=== PATIENT | male | born 1995 | race African-American/Black ===

== ENCOUNTER 2021-03-07 08:36 | Emergency (ER) | payer OTHER, MEDICAID, SELFPAY ==
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
[2021-03-07 09:12] VITALS: BP 118/82; PULSE 80; RESP 16; TEMP 36.6; O2SAT 97; BMI 24.4
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
[2021-03-07 10:58] VITALS: BP 155/80; PULSE 75; RESP 18; O2SAT 95
== END 2021-03-07 11:02 | disposition home or self-care (01) ==
PROVIDERS: Emergency Provider Emergency Medicine
DX: S09.90XA Unspecified injury of head, initial encounter (principal); S16.1XXA Strain of muscle, fascia and tendon at neck level, initial encounter; S63.502A Unspecified sprain of left wrist, initial encounter; S93.401A Sprain of unspecified ligament of right ankle, initial encounter; V43.62XA Car passenger injured in collision with other type car in traffic accident, initial encounter; Y93.89 Activity, other specified; Y92.414 Local residential or business street as the place of occurrence of the external cause; Y99.9 Unspecified external cause status
CPT/HCPCS: 70450; 72125; 73090; 73110; 73130; 73610; 99284; 99285

== ENCOUNTER 2021-08-07 10:45 | Outpatient (REF) | payer MEDICAID, SELFPAY ==
[2021-08-07 11:56] LABS: COVID-19 Test Positive (Negative)
== END 2021-08-07 10:46 | disposition home or self-care (01) ==
LOC: HO.LAB 10:45
PROVIDERS: Visit Provider Internal Medicine
DX: Z20.822 Contact with and (suspected) exposure to COVID-19 (principal)
CPT/HCPCS: 36415; 87635; C9803

== ENCOUNTER 2021-09-06 18:03 | Emergency (ER) | payer OTHER, SELFPAY ==
[2021-09-06 20:17] VITALS: BP 115/73; PULSE 86; RESP 18; TEMP 36.8; O2SAT 96; BMI 25.0
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
== END 2021-09-06 21:34 | disposition home or self-care (01) ==
LOC: HO.ED 21:09
PROVIDERS: Emergency Provider Emergency Medicine Emergency Medical Services
DX: S29.012A Strain of muscle and tendon of back wall of thorax, initial encounter (principal); V49.50XA Passenger injured in collision with unspecified motor vehicles in traffic accident, initial encounter; Y93.9 Activity, unspecified; Y92.410 Unspecified street and highway as the place of occurrence of the external cause; Y99.9 Unspecified external cause status
CPT/HCPCS: 99283

== ENCOUNTER 2022-04-13 11:55 | Outpatient (REF) | payer MEDICAID, SELFPAY ==
--- NOTE | ~2022-04-13 | XR_ITS ---
EXAMINATION: XR RIGHT KNEE XR RIGHT ANKLE XR LUMBAR SPINE CLINICAL INFORMATION: Low back pain, right ankle and right knee. COMPARISON: None TECHNIQUE: Lumbar spine 5 views. Right ankle 3 views. Right knee 3 views. FINDINGS: LUMBAR SPINE: There is normal lumbar lordosis. The vertebral heights, alignment and disc heights are normal. On oblique view there is no pars defect or listhesis. No visible acute fracture, dislocation or lytic process seen. SI joints are symmetrical. RIGHT ANKLE: There are surgical niki along the distal medial lower leg from likely vascular surgery. The ankle mortise and subtalar joints are normal. No visible acute fracture or dislocation seen. RIGHT ANKLE: The tricompartment joint space is maintained normal. No visible acute fracture, dislocation or subluxation seen. No bony erosive changes. The soft tissues are normal. XR/XR ankle RT min 3V IMPRESSION: Unremarkable right ankle exam. There are multiple surgical niki along the medial distal lower leg likely from vascular intervention. Unremarkable right knee exam. Unremarkable lumbar spine exam.
--- NOTE | ~2022-04-13 | XR_ITS ---
EXAMINATION: XR RIGHT KNEE XR RIGHT ANKLE XR LUMBAR SPINE CLINICAL INFORMATION: Low back pain, right ankle and right knee. COMPARISON: None TECHNIQUE: Lumbar spine 5 views. Right ankle 3 views. Right knee 3 views. FINDINGS: LUMBAR SPINE: There is normal lumbar lordosis. The vertebral heights, alignment and disc heights are normal. On oblique view there is no pars defect or listhesis. No visible acute fracture, dislocation or lytic process seen. SI joints are symmetrical. RIGHT ANKLE: There are surgical niki along the distal medial lower leg from likely vascular surgery. The ankle mortise and subtalar joints are normal. No visible acute fracture or dislocation seen. RIGHT ANKLE: The tricompartment joint space is maintained normal. No visible acute fracture, dislocation or subluxation seen. No bony erosive changes. The soft tissues are normal. XR/XR knee RT 2V IMPRESSION: Unremarkable right ankle exam. There are multiple surgical niki along the medial distal lower leg likely from vascular intervention. Unremarkable right knee exam. Unremarkable lumbar spine exam.
--- NOTE | ~2022-04-13 | XR_ITS ---
EXAMINATION: XR RIGHT KNEE XR RIGHT ANKLE XR LUMBAR SPINE CLINICAL INFORMATION: Low back pain, right ankle and right knee. COMPARISON: None TECHNIQUE: Lumbar spine 5 views. Right ankle 3 views. Right knee 3 views. FINDINGS: LUMBAR SPINE: There is normal lumbar lordosis. The vertebral heights, alignment and disc heights are normal. On oblique view there is no pars defect or listhesis. No visible acute fracture, dislocation or lytic process seen. SI joints are symmetrical. RIGHT ANKLE: There are surgical niki along the distal medial lower leg from likely vascular surgery. The ankle mortise and subtalar joints are normal. No visible acute fracture or dislocation seen. RIGHT ANKLE: The tricompartment joint space is maintained normal. No visible acute fracture, dislocation or subluxation seen. No bony erosive changes. The soft tissues are normal. XR/XR lumbar spine 4V min IMPRESSION: Unremarkable right ankle exam. There are multiple surgical niki along the medial distal lower leg likely from vascular intervention. Unremarkable right knee exam. Unremarkable lumbar spine exam.
== END 2022-04-13 11:56 | disposition home or self-care (01) ==
LOC: HO.XRAY 11:55
PROVIDERS: PCP Registered Nurse; Visit Provider Registered Nurse
DX: M25.561 Pain in right knee (principal); M25.571 Pain in right ankle and joints of right foot; M54.50 Low back pain, unspecified
CPT/HCPCS: 72110; 73560; 73610

== ENCOUNTER 2022-07-07 04:57 | Emergency (ER) | payer MEDICAID, SELFPAY ==
[2022-07-07 05:13] VITALS: BP 118/56; PULSE 119; RESP 18; TEMP 37.7; O2SAT 97; BMI 23.6
[2022-07-07 05:44] LABS: Strep A Nucleic Acid Positive (Negative)
[2022-07-07 06:02] LABS: Influenza A PCR NEGATIVE (Negative); Influenza B PCR NEGATIVE (Negative); Resp Syncy Virus RNA Qual PCR NEGATIVE (Negative); SARS COV2 PCR INHOUSE POSITIVE (Negative)
[2022-07-07 06:13] VITALS: BP 111/57; PULSE 98; RESP 16; TEMP 37.1; O2SAT 96
--- NOTE | 2022-07-07 06:27 | ED_ITS ---
HPI - General Adult General Chief complaint: General Medical Stated complaint: flu like symptoms Time Seen by Provider: 07/07/22 06:20 Source: patient Mode of arrival: ambulatory Limitations: no limitations History of Present Illness HPI narrative: Patient comes to the emergency room complaining of sore throat, chills, body aches and subjective fever for the last 24 hours. Patient denies chest pain or shortness of breath, no UTI symptoms Related Data Previous Rx's Medication Instructions Recorded acetaminophen 500 mg tablet 1,000 mg PO QID PRN fever or pain 03/07/21 (Tylenol Extra Strength) #14 tabs cyclobenzaprine 10 mg tablet 10 mg PO Q8H Muscle spasm #10 tabs 03/07/21 ibuprofen 800 mg tablet 800 mg PO Q8H PRN pain #14 tabs 03/07/21 cyclobenzaprine 10 mg tablet 10 mg PO TID PRN muscle spasm #10 09/06/21 tabs ibuprofen 600 mg tablet 600 mg PO Q8H PRN pain #10 tabs 09/06/21 lidocaine 5 % topical patch 1 patch topical DAILY #15 ea 09/06/21 amoxicillin 500 mg-potassium 1 tab PO BID 10 days #20 tabs 07/07/22 clavulanate 125 mg tablet (Augmentin) nirmatrelvir 300 mg (150 mg See Rx Instructions PO .COMPLEX 07/07/22 x2)-ritonavir 100 mg tablet,dose #30 ea pack(EUA) (Paxlovid) Allergies Allergy/AdvReac Type Severity Reaction Status Date / Time No Known Allergies Allergy Verified 09/06/21 20:17 [No Known Allergies*] Review of Systems Review of Systems: Constitutional : No Weight loss, complaining of subjective fever, chills, fatigue and generalized malaise, and body aches ENT/Mouth : No Hearing loss, No Ear Pain, No Nasal Congestion, No Sinus Pain, No Hoarseness, complaining of sore throat, no difficulty swallowing Eyes: No Eye Pain, No Swelling, No Redness, No Foreign Body, No Discharge, No Vision Changes Cardiovascular : No Chest Pain, No SOB, No Dyspnea on Exertion, No Orthopnea, No Edema, No Palpitations Respiratory : No Cough, No Sputum, No Wheezing, No Smoke Exposure, No Dyspnea Gastrointestinal : No Nausea, No Vomiting, No Diarrhea, No Constipation, No abd ominal Pain, No Hematochezia, No Melena Genitourinary : no irregular bleeding, No Dysuria, No Urinary Frequency, No Hematuria, No Urinary Incontinence, No Urgency, No Flank Pain, No Urinary Flow Changes, No Hesitancy Musculoskeletal : No joint pain, No Myalgias, No Joint Swelling Skin : No Skin Lesions, No rash Neuro : No Weakness, No Numbness, No Paresthesias, No Loss of Consciousness, No Dizziness, No Headache Psych : No Anxiety/Panic, No Depression, No SI/HI/AH/VH, No Social Issues, Heme/Lymph: No Bruising, No Bleeding,No Lymphadenopathy Endocrine : No Polyuria, No Polydipsia, No Temperature Intolerance [facility] Social History Social History Patient Tobacco Use Status: Former Tobacco user Advance Directives: No Advance Directives Information Provided: No Physical Exam ED Vital Signs: Vital Signs - 24 hr 07/07/22 05:13 07/07/22 06:13 Temperature 99.9 F 98.7 F Pulse Rate 119 H 98 Respiratory Rate 18 16 Blood Pressure 118/56 L 111/57 L Pulse Oximetry 97 96 Oxygen Delivery Method Room Air Room Air BMI result Body Mass Index 23.6 Const Other: Appearance: Alert. Oriented X3. No acute distress. Eyes: Pupils equal, round and reactive to light. ENT: Pharynx normal. No exudates, no abscess is visualized Neck: Normal inspection. Neck supple. No lymph nodes noted. No crepitus CVS: Normal heart rate and rhythm. Pulses normal. Normal S1 and S2 Respiratory: No respiratory distress. Breath sounds normal. No Wheezing. No rales Abdomen: Soft and nontender. No rigidity. No distention. Skin: Skin warm and dry. Normal skin color. Normal skin turgor. Extremities: No lower extremity edema. No Lacerations. No Rash Neuro: Oriented X 3. No motor deficit. No sensory deficit. Moving all extremities. No slurred speech. CN 2 through 12 grossly intact Psych: calm, cooperative, normal affect Course Course Course Narrative: Patient test positive for COVID-19 and for strep. Medical Decision Making Lab Data Labs: Lab Results 07/07/22 07/07/22 Range/Units 05:20 05:20 Influenza Type A (PCR) NEGATIVE (Negative) Influenza Type B (PCR) NEGATIVE (Negative) RSV RNA Qual (PCR) NEGATIVE (Negative) SARS-CoV-2 RNA (RT-PCR) POSITIVE A (Negative) S. pyogenes GrpA VIDAL Positive A (Negative) Discharge Plan Discharge Clinical Impression: Strep throat, COVID-19 Patient Disposition: Home, Self-Care Instructions: Strep Throat (ED), COVID-19 (Coronavirus Disease 2019) (ED) Additional Instructions: Please follow-up with your primary care physician tomorrow. If you have any worsening or new symptoms, please return to the emergency room or call 911 Prescriptions: New amoxicillin-pot clavulanate [Augmentin] 500-125 mg tablet 1 tab PO BID 10 Days Qty: 20 0RF Paxlovid (EUA) 300 mg (150 mg x 2)-100 mg tablets,dose pack See Rx Instructions .ROUTE .COMPLEX Qty: 30 0RF Rx Instructions: take TWO 150 mg tablets of nirmatrelvir with ONE 100 mg tablet of ritonavir twice daily for 5 days No Action cyclobenzaprine 10 mg tablet 10 mg PO Q8H Qty: 10 0RF ibuprofen 800 mg tablet 800 mg PO Q8H PRN (Reason: pain) Qty: 14 0RF acetaminophen [Tylenol Extra Strength] 500 mg tablet 1,000 mg PO QID PRN (Reason: fever or pain) Qty: 14 0RF cyclobenzaprine 10 mg tablet 10 mg PO TID PRN (Reason: muscle spasm) Qty: 10 0RF ibuprofen 600 mg tablet 600 mg PO Q8H PRN (Reason: pain) Qty: 10 0RF lidocaine 5 % adhesive patch,medicated 1 patch topical DAILY Qty: 15 0RF Rx Instructions: leave on most painful area for up to 12 hrs
== END 2022-07-07 06:44 | disposition home or self-care (01) ==
PROVIDERS: Emergency Provider Emergency Medicine
DX: U07.1 COVID-19 (principal); J02.0 Streptococcal pharyngitis
CPT/HCPCS: 0241U; 36415; 87651; 99283

== ENCOUNTER 2023-03-19 19:27 | Outpatient (REF) | payer MEDICAID, SELFPAY ==
[2023-03-19 20:53] LABS: Influenza A PCR NEGATIVE (Negative); Influenza B PCR NEGATIVE (Negative); Resp Syncy Virus RNA Qual PCR NEGATIVE (Negative); SARS COV2 PCR INHOUSE NEGATIVE (Negative)
== END 2023-03-19 19:28 | disposition home or self-care (01) ==
LOC: HO.HHCLNP 19:27
PROVIDERS: Visit Provider Registered Nurse
DX: R11.10 Vomiting, unspecified (principal); R19.7 Diarrhea, unspecified; Z20.822 Contact with and (suspected) exposure to COVID-19
CPT/HCPCS: 0241U

== ENCOUNTER 2023-07-22 11:06 | Emergency (ER) | payer MEDICAID, SELFPAY ==
--- NOTE | 2023-07-22 11:30 | ED_ITS ---
HPI - General Adult General Chief complaint: Eye Problems Stated complaint: r eye infection Time Seen by Provider: 07/22/23 11:34 Source: patient Mode of arrival: ambulatory Limitations: no limitations History of Present Illness HPI narrative: Patient is a 27 year old assigned male at with no reported medical history presenting to the emergency department today with right eye irritation. Patient states that 2 days ago, he fell asleep with his contacts in, then went to work and his right eye became much more irritated. Patient states that since it has been swollen. Patient states that he has not worn his eye contacts since. Patient denies any dizziness, lightheadedness, abdominal pain, nausea, vomiting, fever, chills, blurry vision, double vision, loss of vision, chest pain, difficulty breathing, shortness of breath, back pain, night sweats, pain with urination, increased urinary frequency, increased urinary urgency, blood in his urine or stool, syncope or a near syncopal episode, recent trauma or falls, bowel incontinence, bladder incontinence, bowel retention, bladder retention, or any other complaints at this time. Onset (ago): day(s) (2) Location: eyes and right Severity: mild Severity scale (1-10): 3 Relieving factors: none Exacerbating factors: none Associated symptoms: denies other symptoms Treatments prior to arrival: none Related Data Previous Rx's Medication Instructions Recorded acetaminophen 500 mg tablet 1,000 mg (2 x 500 mg) PO QID PRN 03/07/21 (Tylenol Extra Strength) fever or pain #14 tabs cyclobenzaprine 10 mg tablet 10 mg PO Q8H Muscle spasm #10 tabs 03/07/21 ibuprofen 800 mg tablet 800 mg PO Q8H PRN pain #14 tabs 03/07/21 cyclobenzaprine 10 mg tablet 10 mg PO TID PRN muscle spasm #10 09/06/21 tabs ibuprofen 600 mg tablet 600 mg PO Q8H PRN pain #10 tabs 09/06/21 lidocaine 5 % topical patch 1 patch topical DAILY #15 ea 09/06/21 amoxicillin 500 mg-potassium 1 tab PO BID 10 days #20 tabs 07/07/22 clavulanate 125 mg tablet (Augmentin) nirmatrelvir 300 mg (150 mg See Rx Instructions PO .COMPLEX 07/07/22 x2)-ritonavir 100 mg tablet,dose #30 ea pack (Paxlovid) doxycycline hyclate 100 mg tablet 100 mg PO BID 7 days #14 tabs 07/22/23 erythromycin 5 mg/gram (0.5 %) eye 0.5 inch ophthalmic (eye) Q4H 7 07/22/23 ointment days #3.5 grams Allergies Allergy/AdvReac Type Severity Reaction Status Date / Time No Known Allergies Allergy Verified 09/06/21 20:17 [No Known Allergies*] Review of Systems Constitutional: Constitutional: Reports no additional constitutional complaints, Denies chills, Denies fever(s) and Denies night sweats Eyes: Eyes: Reports no additional eye complaints, Denies blurry vision, Denies change in vision, Denies diplopia, Denies eye discharge, Reports irritation (right), Denies loss of vision and Reports eye pain (right) ENT: Denies dizziness Cardiovascular: Cardiovascular: Reports no additional cardiovascular complaints, Denies chest pain, Denies lightheadedness, Denies Loss of Consciousness and Denies dyspnea Respiratory: Respiratory: Reports no additional respiratory complaints and Denies dyspnea Gastrointestinal: Gastrointestinal: Reports no additional gastrointestinal complaints, Denies abdominal pain, Denies melena, Denies hematochezia, Denies change in bowel habits and Denies change in stool character Genitourinary: Genitourinary: Reports no additional male genitourinary complaints, Denies hematuria, Denies oliguria, Denies difficulty urinating, Denies dysuria, Denies urinary frequency, Denies urinary hesitancy, Denies urinary incontinence and Denies urinary urgency Musculoskeletal: Musculoskeletal: Reports no additional musculoskeletal complaints, Denies numbness and Denies tingling Neurologic: Denies dizziness, Denies loss of vision, Denies numbness and Denies tingling Psychiatric: Psychiatric: Reports no additional psychiatric complaints Endocrine: Endocrine: Reports no additional endocrine complaints Hematologic/Lymphatic: Hematologic/Lymphatic: Reports no additional hematologic/lymphatic complaints Allergic/Immunologic: Allergic/Immunologic: Reports no additional allergic/immunologic complaints PMFSH Past Medical History Attestation statement: The following information was validated with the patient. Source: old records reviewed and nursing notes reviewed Social History Social History Patient Tobacco Use Status: Former Tobacco user Advance Directives: No Advance Directives Information Provided: No Physical Exam ED Vital Signs: Vital Signs - 24 hr 07/22/23 11:32 Temperature 98.0 F Pulse Rate 76 Respiratory Rate 18 Blood Pressure 125/80 Pulse Oximetry 97 Oxygen Delivery Method Room Air BMI result Body Mass Index 23.6 Const General: cooperative, no acute distress, alert and awake Nutritional Appearance: well nourished Orientation/consciousness: patient oriented x3 Limitations: no limitations HENMT Head: Yes normal to inspection and Yes atraumatic Ears: hearing grossly normal bilaterally and external ears normal General nose exam: Normal external nose present, no nasal discharge noted and no epistaxis Face and sinus: Yes normal facial exam, No abrasion and No laceration Mouth: Normal oral and palatal mucosa present, no drooling and no muffled voice Eyes Other: irritation to the right conjunctiva with right lower lid swelling Pupils: Equal, round and reactive pupils present EOM: EOMs intact bilaterally Neck Neck: Yes normal visual inspection, Yes full ROM and Yes no lymphadenopathy Chest Chest palpation & inspection: normal inspection of the chest Resp Effort & Inspection: normal respiratory effort and able to speak in complete sentences GI Inspection: Yes normal to inspection Neuro General: patient oriented x3 and moves all extremities Cranial nerves: Yes Equal, round and reactive pupils present Cognition (Neuro): normal cognition Motor exam (neuro): 5/5 motor strength present throughout Sensory Exam: Normal double simultaneous stimulation for sensation Coordination: [id number] test normal Extrem General: Yes normal to inspection, Yes full ROM and Yes capillary refill normal Psych Appearance: grossly normal Mental Status: mental status grossly normal Affect: normal affect Attitude: cooperative Thought process: Normal thought process present Thought content: Normal thought content present Insight: Good insight present (Psych) Medical Decision Making Medical Decision Making MDM Narrative: Patient is a 27 year old assigned male at with no reported medical history of presenting to the emergency department today with right eye pain / irritat ion. Patient's physical exam was as noted in the physical exam portion of this note. I explained my physical exam findings to the patient. I answered all questions asked by the patient. I stressed the importance of the patient taking his medication as prescribed. I stressed the importance of the patient following up with his primary care provider and an eyelet row marker. I stressed the importance of the patient returning to the emergency department immediately if his symptoms were to worsen or if he were to develop any dizziness, shortness of breath, difficulty breathing, chest pain, blurry vision, loss of vision, nausea, vomiting, abdominal pain, fever, chills, back pain, or any other complaints. Patient verbalized agreement and understanding with this treatment plan and discharge. Differential Diagnosis Differential Diagnoses: The differential diagnosis associated with the presentation includes Right eye pain Right eye conjunctivitis Prescription Management I considered prescription management with: Antibiotic (patient prescribed both a topical and systemic antibiotic given his history of contact lens use) Discharge Plan Discharge Clinical Impression: Conjunctivitis Patient Disposition: Home, Self-Care Instructions: Conjunctivitis (ED) Additional Instructions: Follow up with your primary care provider. Return to the emergency department immediately if your symptoms worsen or if you develop any dizziness, shortness of breath, difficulty breathing, chest pain, blurry vision, loss of vision, nausea, vomiting, abdominal pain, fever, chills, back pain, or any other complaints. Prescriptions: New erythromycin 5 mg/gram (0.5 %) ointment 0.5 inch ophthalmic (eye) Q4H 7 Days Qty: 3.5 0RF doxycycline hyclate 100 mg tablet 100 mg PO BID 7 Days Qty: 14 0RF No Action cyclobenzaprine 10 mg tablet 10 mg PO Q8H Qty: 10 0RF ibuprofen 800 mg tablet 800 mg PO Q8H PRN (Reason: pain) Qty: 14 0RF acetaminophen [Tylenol Extra Strength] 500 mg tablet 1,000 mg PO QID PRN (Reason: fever or pain) Qty: 14 0RF cyclobenzaprine 10 mg tablet 10 mg PO TID PRN (Reason: muscle spasm) Qty: 10 0RF ibuprofen 600 mg tablet 600 mg PO Q8H PRN (Reason: pain) Qty: 10 0RF lidocaine 5 % adhesive patch,medicated 1 patch topical DAILY Qty: 15 0RF Rx Instructions: leave on most painful area for up to 12 hrs amoxicillin-pot clavulanate [Augmentin] 500-125 mg tablet 1 tab PO BID 10 Days Qty: 20 0RF Paxlovid 300 mg (150 mg x 2)-100 mg tablets,dose pack See Rx Instructions .ROUTE .COMPLEX Qty: 30 0RF Rx Instructions: take TWO 150 mg tablets of nirmatrelvir with ONE 100 mg tablet of ritonavir twice daily for 5 days Referrals: [facility] [place]] (Call to establish and follow up with a primary care provider. If you already have a primary care provider, please follow up with them.) [facility] [place] [Provider Group] (Call to establish and follow up with a primary care provider. If you already have a primary care provider, please follow up with them.) [facility] [Provider Group] (Call to establish and follow up with a primary care provider. If you already have a primary care provider, please follow up with them.) David Jimenez [Physician] - (Call to establish and follow up with an eyelet row marker.) Stand Alone Forms: Work/School Release Interventions: ED Discharge Assessment Last Done: 07/22/23 12:02 Discharge Date/Time: 07/22/23 12:03 Print Language: Greek
[2023-07-22 11:32] VITALS: BP 125/80; PULSE 76; RESP 18; TEMP 36.7; O2SAT 97; BMI 23.6
== END 2023-07-22 12:03 | disposition home or self-care (01) ==
PROVIDERS: Emergency Provider Emergency Medicine
DX: H10.9 Unspecified conjunctivitis (principal)
CPT/HCPCS: 99282; 99283

== ENCOUNTER 2023-10-01 18:51 | Emergency (ER) | payer MEDICAID, SELFPAY ==
[2023-10-01 18:56] VITALS: BP 122/76; PULSE 78; O2SAT 99
[2023-10-01 19:00] VITALS: BP 110/49; PULSE 92; RESP 20; TEMP 36.4; O2SAT 100; BMI 23.1
--- NOTE | 2023-10-01 19:00 | ECG_ITS ---
Test Reason : N/V/CP Blood Pressure : / mmHG Vent. Rate : 092 BPM Atrial Rate : 092 BPM P-R Int : 144 ms QRS Dur : 078 ms QT Int : 330 ms P-R-T Axes : 067 085 071 degrees QTc Int : 408 ms Normal sinus rhythm with sinus arrhythmia ST elevation, consider early repolarization Borderline ECG When compared with ECG of 07-FEB-2009 13:46, No significant changes seen Referred By: Jai Barbour Electronically Signed By:VINNY MANCINI MD
--- NOTE | 2023-10-01 19:01 | ED.GENADULT ---
HPI - General Adult General Chief complaint: Nausea/Vomiting/Diarrhea Stated complaint: N/V, CHEST PAIN Related Data Previous Rx's ?Medication ?Instructions ?Recorded acetaminophen 500 mg tablet 1,000 mg (2 x 500 mg) PO QID PRN 03/07/21 (Tylenol Extra Strength) fever or pain #14 tabs cyclobenzaprine 10 mg tablet 10 mg PO Q8H Muscle spasm #10 tabs 03/07/21 ibuprofen 800 mg tablet 800 mg PO Q8H PRN pain #14 tabs 03/07/21 cyclobenzaprine 10 mg tablet 10 mg PO TID PRN muscle spasm #10 09/06/21 tabs ibuprofen 600 mg tablet 600 mg PO Q8H PRN pain #10 tabs 09/06/21 lidocaine 5 % topical patch 1 patch topical DAILY #15 ea 09/06/21 amoxicillin 500 mg-potassium 1 tab PO BID 10 days #20 tabs 07/07/22 clavulanate 125 mg tablet (Augmentin) nirmatrelvir 300 mg (150 mg See Rx Instructions PO .COMPLEX 07/07/22 x2)-ritonavir 100 mg tablet,dose #30 ea pack (Paxlovid) doxycycline hyclate 100 mg tablet 100 mg PO BID 7 days #14 tabs 07/22/23 erythromycin 5 mg/gram (0.5 %) eye 0.5 inch ophthalmic (eye) Q4H 7 07/22/23 ointment days #3.5 grams ibuprofen 600 mg tablet 600 mg PO Q8H PRN pain #14 tabs 12/26/23 Allergies Allergy/AdvReac Type Severity Reaction Status Date / Time No Known Allergies Allergy Verified 12/26/23 09:38 [No Known Allergies*] [facility] Social History Social History Patient Tobacco Use Status: Former Tobacco user Advance Directives: No Do you have a plan to hurt others: No Plan Physical Exam ED Vital Signs: BMI result Body Mass Index 23.1 Course Course Course Narrative: RME- 28 year old male presents for evaluation of nausea, vomiting and chest pain. He also reports near syncope. Plan for labs, EKG, and viral swabs Medications Administered Discontinued Medications Generic Name Dose Route Start Last Admin Trade Name Freq PRN Reason Stop Dose Admin Ondansetron HCl 4 mg 10/01/23 19:02 10/01/23 19:09 Ondansetron Odt 4 Mg Tab.Rapdis TRANSLINGU 10/01/23 19:03 4 mg ONCE ONE Administration Medical Decision Making Lab Data 10/01/23 19:24 10/01/23 19:24 Labs: Lab Results 10/01/23 10/01/23 Range/Units 19:24 19:47 WBC 17.3 H (4.8-10.8) X10*3/uL RBC 5.68 (4.60-5.80) X10*6/uL Hgb 16.9 (14.0-18.0) g/dl Hct 48.2 (42.0-52.0) % MCV 84.9 (80.0-98.0) fL MCH 29.8 (27.0-33.0) pg MCHC 35.1 (31.0-36.0) g/dl RDW 12.2 (11.0-16.0) % Plt Count 208 (160-400) X10*3/uL MPV 10.3 (9.4-12.4) fL Immature Gran % (Auto) 0.5 H (0.0-0.4) % Neut % (Auto) 91.0 H (45-73) % Lymph % (Auto) 4.0 L (20-40) % [place] % (Auto) 4.2 (2-11) % Eos % (Auto) 0.1 (0-4) % Baso % (Auto) 0.2 (0-2) % Lymph # (Auto) 0.7 L (1.2-4.9) X10*3/uL [place] # (Auto) 0.7 (0.1-1.2) X10*3/uL Eos # (Auto) 0.0 (0.0-0.4) X10*3/uL Baso # (Auto) 0.0 (0.0-0.2) X10*3/uL Abs Immat Gran (auto) 0.08 H (0.00-0.03) X10*3/uL Absolute Neuts (auto) 15.8 H (2.0-8.3) x10*3/uL Absolute Nucleated RBC 0.000 (0.0-0.012) X10*3/uL Nucleated RBC % (auto) 0.0 (0.0-0.2) /100WBC Smear Tech's Comments VERIFIED Sodium 141 (135-145) mmol/L Potassium 3.7 (3.3-5.1) mmol/L Chloride 106 (96-108) mmol/L Carbon Dioxide 21 L (22-29) mmol/L Anion Gap 18 (12-20) BUN 10 (9-16) mg/dL Creatinine 0.80 (0.5-1.4) mg/dL Estim Creat Clear Calc 150.3 Estimated GFR > 60 Random Glucose 102 (60-115) mg/dL Calcium 10.2 (8.4-10.2) mg/dL Total Bilirubin 1.1 H (0.0-1.0) mg/dL AST 21 (5-37) U/L ALT 35 (0-40) U/L Alkaline Phosphatase 83 (39-117) U/L Troponin I High Sens < 2.7 (<3.5-35.0) ng/L Total Protein 8.3 H (6.5-8.0) g/dL Albumin 4.9 (3.5-5.0) g/dL Lipase 12 (8-78) U/L Urine Opiates Screen Not Detected (Not Detect) Urine Fentanyl Screen Not Detected (Not Detect) Ur Barbiturates Screen Not Detected (Not Detect) Ur Phencyclidine Scrn Not Detected (Not Detect) Ur Amphetamines Screen Not Detected (Not Detect) U Benzodiazepines Scrn Not Detected (Not Detect) Urine Cocaine Screen Not Detected (Not Detect) U Marijuana (THC) Screen POSITIVE H (Not Detect) COVID-19 (MAVERICK) Negative (Negative) COVID-19 Clin Com See Note Influenza Type A (VIDAL) Negative (Negative) Influenza Type B (VIDAL) Negative (Negative) Influenza A & B Note See Note Discharge Plan Discharge Clinical Impression: Nausea Patient Disposition: Left W/O Completing Treatment Prescriptions: No Action cyclobenzaprine 10 mg tablet 10 mg PO Q8H Qty: 10 0RF ibuprofen 800 mg tablet 800 mg PO Q8H PRN (Reason: pain) Qty: 14 0RF acetaminophen [Tylenol Extra Strength] 500 mg tablet 1,000 mg PO QID PRN (Reason: fever or pain) Qty: 14 0RF cyclobenzaprine 10 mg tablet 10 mg PO TID PRN (Reason: muscle spasm) Qty: 10 0RF ibuprofen 600 mg tablet 600 mg PO Q8H PRN (Reason: pain) Qty: 10 0RF lidocaine 5 % adhesive patch,medicated 1 patch topical DAILY Qty: 15 0RF Rx Instructions: leave on most painful area for up to 12 hrs amoxicillin-pot clavulanate [Augmentin] 500-125 mg tablet 1 tab PO BID 10 Days Qty: 20 0RF Paxlovid 300 mg (150 mg x 2)-100 mg tablets,dose pack See Rx Instructions .ROUTE .COMPLEX Qty: 30 0RF Rx Instructions: take TWO 150 mg tablets of nirmatrelvir with ONE 100 mg tablet of ritonavir twice daily for 5 days erythromycin 5 mg/gram (0.5 %) ointment 0.5 inch ophthalmic (eye) Q4H 7 Days Qty: 3.5 0RF doxycycline hyclate 100 mg tablet 100 mg PO BID 7 Days Qty: 14 0RF ibuprofen 600 mg tablet 600 mg PO Q8H PRN (Reason: pain) Qty: 14 0RF Discharge Date/Time: 10/01/23 20:18
[2023-10-01] MEDS: Ondansetron ODT 4 MG TAB.RAPDIS TRANSLINGU (19:09)
--- NOTE | 2023-10-01 19:28 | MHC.EDTECH ---
Patient brought into triage area,EKG taken per order and signed by provider,Labs,Covid,and Flu obtained and sent to lab.
[2023-10-01 19:32] LABS: Basophils Percent Auto 0.2 % (0-2); Eosinophils Percent Auto 0.1 % (0-4); Hematocrit 48.2 % (42.0-52.0); Hemoglobin 16.9 g/dl (14.0-18.0); Imm Gran Abs Auto 0.08 X10*3/uL (0.00-0.03); Imm Gran Pct Auto 0.5 % (0.0-0.4); Lymphocytes Absolute Auto 0.7 X10*3/uL (1.2-4.9); MANUAL DIFF FLAG SCAN; Mean Corpuscular HGB Conc 35.1 g/dl (31.0-36.0); Mean Corpuscular Hemoglobin 29.8 pg (27.0-33.0); Mean Corpuscular Volume 84.9 fL (80.0-98.0); Mean Platelet Volume 10.3 fL (9.4-12.4); Monocytes Absolute Auto 0.7 X10*3/uL (0.1-1.2); Monocytes Percent Auto 4.2 % (2-11); Neutrophils Absolute Auto 15.8 x10*3/uL (2.0-8.3); Platelet Count 208 X10*3/uL (160-400); Red Blood Count 5.68 X10*6/uL (4.60-5.80); Red Cell Distribution Width 12.2 % (11.0-16.0); SCAN SMEAR FLAG 1; White Blood Count 17.3 X10*3/uL (4.8-10.8)
[2023-10-01 19:46] LABS: Alanine Aminotransferase 35 U/L (0-40); Albumin Level 4.9 g/dL (3.5-5.0); Alkaline Phosphatase 83 U/L (39-117); Anion Gap 18 (12-20); Aspartate Amino Transferase 21 U/L (5-37); Bilirubin Total 1.1 mg/dL (0.0-1.0); Blood Urea Nitrogen 10 mg/dL (9-16); COVID-19 Test Negative (Negative); Calcium 10.2 mg/dL (8.4-10.2); Carbon Dioxide 21 mmol/L (22-29); Chloride 106 mmol/L (96-108); Creatinine Clr Calc Pharmacy 150.3; Estimated Glomerular Filt Rate > 60; Glucose Random 102 mg/dL (60-115); IDNOW Serial# 08D9AD1C; Lipase 12 U/L (8-78); Potassium 3.7 mmol/L (3.3-5.1); Sodium 141 mmol/L (135-145); Total Protein 8.3 g/dL (6.5-8.0)
[2023-10-01 19:48] LABS: IDNOW Serial# 152EDE1D; Influenza A Negative (Negative); Influenza B2 Negative (Negative)
--- NOTE | 2023-10-01 19:52 | PC.NURSE ---
Patient asking how long the wait is going to be, this nurse explained different things that can affect wait time. Patient requesting to be discharged at this time because he feels he would be unable to sit in the waiting due to feeling dizzy. Patient encouraged to stay as we don't have his labs back and he should be seen but patient is adamant about being discharged. Patient spoke with Triage PA, about leaving and concerns regarding patient leaving.
[2023-10-01 19:53] LABS: SLIDE REVIEW VERIFIED
[2023-10-01 19:54] LABS: Troponin-I High Sensitivity < 2.7 ng/L (<3.5-35.0)
[2023-10-01 20:14] LABS: Amphetamine Screen Urine Not Detected (Not Detect); Barbiturates, Urine Not Detected (Not Detect); Benzodiazepines Screen Urine Not Detected (Not Detect); Cannabinoid Screen Urine POSITIVE (Not Detect); Cocaine Screen Urine Not Detected (Not Detect); Fentanyl, urine Not Detected (Not Detect); Opiate Screen Urine Not Detected (Not Detect); Phencyclidine Screen Urine Not Detected (Not Detect)
== END 2023-10-01 20:18 | disposition left against medical advice (07) ==
PROVIDERS: Physician Assistant; Emergency Provider Emergency Medicine
DX: R11.2 Nausea with vomiting, unspecified (principal); R07.89 Other chest pain; Z79.899 Other long term (current) drug therapy; Z11.52 Encounter for screening for COVID-19
CPT/HCPCS: 80053; 80307; 83690; 84484; 85025; 87502; 87635; 93005; 99283

== ENCOUNTER → 2023-10-01 19:00 | Outpatient (BNV) | payer MEDICAID, SELFPAY | PROVIDERS: Emergency Provider Emergency Medicine; Visit Provider Internal Medicine Cardiovascular Disease | DX: R07.9 Chest pain, unspecified (principal) | CPT/HCPCS: 93010 ==

== ENCOUNTER 2023-10-29 22:08 | Emergency (ER) | payer MEDICAID, SELFPAY ==
[2023-10-29 22:40] VITALS: BP 102/65; PULSE 82; RESP 14; TEMP 37.1; O2SAT 95; BMI 24.4
[2023-10-29 23:22] LABS: COVID-19 Test Negative (Negative); IDNOW Serial# 55D5AD1C
[2023-10-29 23:24] LABS: IDNOW Serial# 16C4AD1C; Influenza A Negative (Negative); Influenza B2 Negative (Negative)
[2023-10-30 00:21] LABS: IDNOW Serial# 6674DD1D; Strep A Nucleic Acid Negative (Negative)
--- NOTE | 2023-10-30 01:14 | ED_ITS ---
HPI - General Adult General Chief complaint: General Medical Stated complaint: throat hurts Time Seen by Provider: 10/30/23 00:11 Source: patient Mode of arrival: ambulatory Limitations: no limitations History of Present Illness HPI narrative: 28 yold male presents to the ED for sore throat, coughing, and diarrhea for the past 3 days. Patient states his son his sick also. Related Data Previous Rx's Medication Instructions Recorded acetaminophen 500 mg tablet 1,000 mg (2 x 500 mg) PO QID PRN 03/07/21 (Tylenol Extra Strength) fever or pain #14 tabs cyclobenzaprine 10 mg tablet 10 mg PO Q8H Muscle spasm #10 tabs 03/07/21 ibuprofen 800 mg tablet 800 mg PO Q8H PRN pain #14 tabs 03/07/21 cyclobenzaprine 10 mg tablet 10 mg PO TID PRN muscle spasm #10 09/06/21 tabs ibuprofen 600 mg tablet 600 mg PO Q8H PRN pain #10 tabs 09/06/21 lidocaine 5 % topical patch 1 patch topical DAILY #15 ea 09/06/21 amoxicillin 500 mg-potassium 1 tab PO BID 10 days #20 tabs 07/07/22 clavulanate 125 mg tablet (Augmentin) nirmatrelvir 300 mg (150 mg See Rx Instructions PO .COMPLEX 07/07/22 x2)-ritonavir 100 mg tablet,dose #30 ea pack (Paxlovid) doxycycline hyclate 100 mg tablet 100 mg PO BID 7 days #14 tabs 07/22/23 erythromycin 5 mg/gram (0.5 %) eye 0.5 inch ophthalmic (eye) Q4H 7 07/22/23 ointment days #3.5 grams Allergies Allergy/AdvReac Type Severity Reaction Status Date / Time No Known Allergies Allergy Verified 10/29/23 22:40 [No Known Allergies*] Review of Systems Review of Systems: coughing, chest congestion, and diarreha for the past 3 days Yes all other systems are reviewed and are negative [facility] Social History Social History Patient Tobacco Use Status: Former Tobacco user Advance Directives: No Advance Directives Information Provided: No Physical Exam ED Vital Signs: Vital Signs - 24 hr 10/29/23 22:40 Temperature 98.8 F Pulse Rate 82 Respiratory Rate 14 Blood Pressure 102/65 Pulse Oximetry 95 Oxygen Delivery Method Room Air BMI result Body Mass Index 24.4 Const General: cooperative, healthy appearing, comfortable, no acute distress, well developed, alert, awake and Physically active Orientation/consciousness: oriented to person, oriented to place, oriented to time and patient oriented x3 [facility] Head: Yes normal to inspection, Yes No palpable skull fracture present, Yes normocephalic, Yes atraumatic and No abrasion Ears: hearing grossly normal bilaterally, external ears normal, TM's normal bilaterally, TM normal on the right, TM normal on the left, EAC's normal, mastoids normal and no periauricular adenopathy Throat: Yes posterior oropharynx normal, Yes tonsils normal and Yes uvula midline Eyes General: appearance normal, both eyes and all related structures Neck Neck: Yes normal visual inspection, Yes full ROM, Yes no lymphadenopathy, Yes no meningeal signs, Yes trachea midline, Yes supple, No anterior neck swelling and No tender Chest Chest palpation & inspection: normal inspection of the chest and normal palpation of entire chest wall Resp Effort & Inspection: normal respiratory effort and able to speak in complete sentences Auscultation: clear to auscultation bilaterally Cardio Jugular venous distension: no JVD Heart sounds: S1 normal heart sound present and S2 normal heart sound present GI Inspection: Yes normal to inspection Palpation (GI): Soft to palpation, not firm, nontender, no guarding and not rigid General: Yes no CVA tenderness Back/Spine/Pelvis Back: no CVA tenderness and No back tenderness Skin General skin exam: no rashes or lesions noted, elasticity normal and turgor normal Neuro General: oriented to person, oriented to place, oriented to time, patient oriented x3, gait normal, tone normal, moves all extremities, Normal light touch and pain sensation, no meningeal signs and no focal motor deficits Extrem General: Yes normal to inspection, Yes full ROM and Yes capillary refill normal Psych Appearance: grossly normal, well kempt and not disheveled Medical Decision Making Medical Decision Making MDM Narrative: 28 yold male presens to the ED for URI Symptoms. Patient is well appearing. Covid, Influenza, and strep came back negative. Patient explained worrisome signs and told to return to the ED if heas them. Differential Diagnosis Differential Diagnoses: The differential diagnosis associated with the presentation includes (Covid, infelunzza, and strep test) Admission/Observation Consideration of admission/observation: Escalation of care including admission/observation considered Lab Data MDM Lab Attestation statement: I reviewed the patient's lab results. Labs: Lab Results 10/29/23 10/30/23 Range/Units 23:03 00:07 COVID-19 ([facility]) Negative (Negative) COVID-19 Clin Com See Note Influenza Type A ([facility]AL) Negative (Negative) Influenza Type B (VIDAL) Negative (Negative) Influenza A & B Note See Note S. pyogenes GrpA [facility]AL Negative (Negative) Independent Historian Clinical information obtained from an independent historian. History obtained from or confirmed by: Other (patient) External Record Review External record reviewed: Other (prior visits) Discharge Plan Discharge Clinical Impression: URI (upper respiratory infection), Pharyngitis Patient Disposition: Home, Self-Care Instructions: Pharyngitis (ED), Upper Respiratory Infection (ED) Additional Instructions: Your COVID, influenza, and strep came back negative. Return to the ED immediately for any chest pain, shortness of breath, drooling, change in voice, inability tolerate solid food/liquid, headache, dizziness, abdominal pain, dysuria, hematuria, or any other concerning symptoms. Recommend follow-up with primary care provider Prescriptions: No Action cyclobenzaprine 10 mg tablet 10 mg PO Q8H Qty: 10 0RF ibuprofen 800 mg tablet 800 mg PO Q8H PRN (Reason: pain) Qty: 14 0RF acetaminophen [Tylenol Extra Strength] 500 mg tablet 1,000 mg PO QID PRN (Reason: fever or pain) Qty: 14 0RF cyclobenzaprine 10 mg tablet 10 mg PO TID PRN (Reason: muscle spasm) Qty: 10 0RF ibuprofen 600 mg tablet 600 mg PO Q8H PRN (Reason: pain) Qty: 10 0RF lidocaine 5 % adhesive patch,medicated 1 patch topical DAILY Qty: 15 0RF Rx Instructions: leave on most painful area for up to 12 hrs amoxicillin-pot clavulanate [Augmentin] 500-125 mg tablet 1 tab PO BID 10 Days Qty: 20 0RF Paxlovid 300 mg (150 mg x 2)-100 mg tablets,dose pack See Rx Instructions .ROUTE .COMPLEX Qty: 30 0RF Rx Instructions: take TWO 150 mg tablets of nirmatrelvir with ONE 100 mg tablet of ritonavir twice daily for 5 days erythromycin 5 mg/gram (0.5 %) ointment 0.5 inch ophthalmic (eye) Q4H 7 Days Qty: 3.5 0RF doxycycline hyclate 100 mg tablet 100 mg PO BID 7 Days Qty: 14 0RF Stand Alone Forms: Work/School Release Interventions: ED Discharge Assessment Last Done: 10/30/23 02:14 Discharge Date/Time: 10/30/23 02:15 Print Language: Liberian
[2023-10-30 02:13] VITALS: BP 110/63; PULSE 84; RESP 14; TEMP 36.8; O2SAT 95
== END 2023-10-30 02:15 | disposition home or self-care (01) ==
PROVIDERS: Emergency Provider Emergency Medicine Emergency Medical Services; PCP Registered Nurse
DX: J02.9 Acute pharyngitis, unspecified (principal); R05.9 Cough, unspecified; R19.7 Diarrhea, unspecified; Z11.52 Encounter for screening for COVID-19
CPT/HCPCS: 87502; 87635; 87651; 99283

== ENCOUNTER 2023-12-25 16:40 | Emergency (ER) | payer MEDICAID, SELFPAY ==
--- NOTE | ~2023-12-25 | XR_ITS ---
EXAMINATION: X-RAY RIGHT AND LEFT FEET CLINICAL INFORMATION: Pain. COMPARISON: None available. TECHNIQUE: 3 views of each foot. FINDINGS: Right foot: No acute fracture or subluxation. Joint spaces are maintained. Surgical clips are partially imaged in the posterior soft tissues of the distal calf. Mild diffuse soft tissue swelling. Left foot: No acute fracture or subluxation. Joint spaces are maintained. Mild diffuse soft tissue swelling. XR/XR foot LT 2V IMPRESSION: 1. No acute fracture or subluxation. 2. Mild diffuse soft tissue swelling bilaterally. 3. Surgical clips in the posterior aspect of the distal calf of the right lower extremity.
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
--- NOTE | ~2023-12-25 | XR_ITS ---
EXAMINATION: X-RAY RIGHT AND LEFT FEET CLINICAL INFORMATION: Pain. COMPARISON: None available. TECHNIQUE: 3 views of each foot. FINDINGS: Right foot: No acute fracture or subluxation. Joint spaces are maintained. Surgical clips are partially imaged in the posterior soft tissues of the distal calf. Mild diffuse soft tissue swelling. Left foot: No acute fracture or subluxation. Joint spaces are maintained. Mild diffuse soft tissue swelling. XR/XR foot RT min 3V IMPRESSION: 1. No acute fracture or subluxation. 2. Mild diffuse soft tissue swelling bilaterally. 3. Surgical clips in the posterior aspect of the distal calf of the right lower extremity.
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
[2023-12-25 17:18] VITALS: BP 161/76; PULSE 99; RESP 20; TEMP 37.6; O2SAT 100; BMI 23.1
== END 2023-12-25 18:40 | disposition left against medical advice (07) ==
LOC: HO.ED 18:36
PROVIDERS: Emergency Provider Emergency Medicine
DX: M79.605 Pain in left leg (principal)
CPT/HCPCS: 70450; 70486; 72125; 73620; 73630; 99281; 99284

== ENCOUNTER 2023-12-26 09:33 | Emergency (ER) | payer MEDICAID, SELFPAY ==
[2023-12-26 09:37] VITALS: BP 108/35; PULSE 95; RESP 18; TEMP 36.8; O2SAT 96; BMI 23.1
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
[2023-12-26 10:44] VITALS: BP 116/77; PULSE 87; RESP 20; TEMP 36.8; O2SAT 97
[2023-12-26 10:45] VITALS: BP 116/77; PULSE 87; RESP 20; TEMP 37.1; O2SAT 97
== END 2023-12-26 10:46 | disposition home or self-care (01) ==
PROVIDERS: Emergency Provider Emergency Medicine; PCP Registered Nurse
DX: S93.602A Unspecified sprain of left foot, initial encounter (principal); S50.02XA Contusion of left elbow, initial encounter; S00.01XA Abrasion of scalp, initial encounter; R51.9 Headache, unspecified; M54.2 Cervicalgia; Y04.2XXA Assault by strike against or bumped into by another person, initial encounter; Y93.9 Activity, unspecified; Y92.9 Unspecified place or not applicable; Y99.8 Other external cause status
CPT/HCPCS: 29515; 99283; 99284